=== PATIENT | male | born 1940 | race Two or more races ===

== ENCOUNTER 2017-01-16 00:40 | Emergency (ER) | payer OTHER ==
[~2017-01-16] VITALS: Ht 170.2 cm; Wt 80.0 kg
[2017-01-16] MEDS ORDERED: METO25TA35 PO (00:57)
[2017-01-16] MEDS ORDERED: ATOR20TA9 PO (00:57)
[2017-01-16] MEDS ORDERED: ASPI-515 PO (00:57)
[2017-01-16] MEDS ORDERED: OMEP-110 PO (00:57)
[2017-01-16] MEDS ORDERED: APIX5TAB PO (00:57)
[2017-01-16] MEDS ORDERED: ACETAMINOPHEN 325 MG TABLET PO ONE (01:00)
[2017-01-16 01:21] LABS: BLOOD UREA NITROGEN 15 mg/dL (7-18)
[2017-01-16] MEDS ORDERED: ACETAMINOPHEN 325 MG TABLET ONE (01:38)
[2017-01-16 02:02] VITALS: BP 163/79
== END 2017-01-16 02:56 | disposition home or self-care (01) ==
LOC: ED 02:00
DX: I10 Essential (primary) hypertension (principal); E78.5 Hyperlipidemia, unspecified; K21.9 Gastro-esophageal reflux disease without esophagitis; Z79.01 Long term (current) use of anticoagulants; Z79.82 Long term (current) use of aspirin; Z95.1 Presence of aortocoronary bypass graft
CPT/HCPCS: 36415; 71020; 80048; 93005; 99285